=== PATIENT | female | born 1975 | race Two or more races ===

== ENCOUNTER 2023-05-24 06:33 | Day surgery (SDC) | payer OTHER ==
[~2023-05-24 06:33] MED LIST: Albuterol 0.083% 2.5 MG/3 ML Neb Soln NEB PRN; HYDROmorphone 1 MG/ML Syringe IVPUSH PRN; Lactated Ringers 1,000 ML IV SCH; Metoclopramide 10 MG/2 ML SDV IVPUSH PRN; Morphine 2 MG/ML SYRINGE IVPUSH PRN; Naloxone 0.4 MG/ML SDV IVPUSH PRN; Ondansetron 4 MG/2 ML SDV IVPUSH PRN; Sodium Chloride 0.9% 10 ML Syringe FLUSH PRN; Sodium Chloride 0.9% 2.5 ML Syringe FLUSH PRN; Sodium Chloride 0.9% 20 ML SDV IV PRN; droPERidol 5 MG/2 ML SDV IVPUSH PRN; fentaNYL 50 MCG/ML SDV IVPUSH PRN
[2023-05-24] MEDS ORDERED: Bupivacaine 0.5% 30 ML SDV ONE (07:32)
[2023-05-24] MEDS ORDERED: Lidocaine 1% 20 ML MDV ONE (07:32)
[2023-05-24] MEDS ORDERED: Heparin Sodium 100 Units/ML 3 ML Syringe ONE (07:32)
[2023-05-24] MEDS ORDERED: Iopamidol 200-M 10 ML vial ITHECAL ONE (07:32)
[2023-05-24] MEDS ORDERED: Lidocaine 2% 11 ML Jelly Filled Syringe ONE (07:38)
[2023-05-24] MEDS ORDERED: Dexamethasone 4 MG/ML 5 ML MDV ONE (07:38)
[2023-05-24] MEDS ORDERED: Lidocaine 2% 5 ML SDV ONE (07:38)
[2023-05-24] MEDS ORDERED: Ketorolac 30 MG/ML SDV ONE (07:38)
[2023-05-24] MEDS ORDERED: Ondansetron 4 MG/2 ML SDV ONE (07:38)
[2023-05-24] MEDS ORDERED: Propofol 200 MG/20 ML SDV ONE (07:38)
[2023-05-24] MEDS ORDERED: Morphine 10 MG/ML SDV ONE (07:39)
[2023-05-24] MEDS ORDERED: ceFAZolin 1 GM Vial ONE (08:18)
[2023-05-24] MEDS ORDERED: ceFAZolin 2 GM in Sodium Chloride 0.9% 50 ML IV ONE (16:26)
== END 2023-05-24 10:40 | disposition home or self-care (01) ==
LOC: MW.SDS 06:33
PROVIDERS: ATTEND Surgery
DX: C50.911 Malignant neoplasm of unspecified site of right female breast (principal); D49.89 Neoplasm of unspecified behavior of other specified sites; K21.9 Gastro-esophageal reflux disease without esophagitis; Z79.899 Other long term (current) drug therapy; Z88.8 Allergy status to other drugs, medicaments and biological substances
CPT/HCPCS: 36561; 71045; 76000; 81025; A9270; C1788; J0665; J0690; J1642; J1885; J2270; J2405; J2704; J7120; J1100; J3490; Q9966

== ENCOUNTER 2024-07-20 09:06 | Day surgery (SDC) | payer BC ==
[2024-07-20] MEDS: Lactated Ringers 1,000 ML IV SCH (09:28)
[2024-07-20] MEDS ORDERED: propofoL 500 MG/50 ML 50 ML ONE (09:57)
[2024-07-20] MEDS ORDERED: Lidocaine 2% 5 ML SDV ONE (09:58)
[2024-07-20] MEDS ORDERED: Phenylephrine HCl In 0.9% NaCl 1 MG/10 ML Syringe ONE (10:29)
[2024-07-20] MEDS ORDERED: Lactated Ringers 1,000 ML IV SCH (11:00)
== END 2024-07-20 11:55 | disposition home or self-care (01) ==
LOC: MW.SDS 09:06
PROVIDERS: ATTEND Surgery
DX: Z12.11 Encounter for screening for malignant neoplasm of colon (principal); K21.9 Gastro-esophageal reflux disease without esophagitis; Z79.899 Other long term (current) drug therapy; Z88.1 Allergy status to other antibiotic agents; Z88.8 Allergy status to other drugs, medicaments and biological substances
CPT/HCPCS: 45378; J2003; J2371; J2704; J7120; 00812

== ENCOUNTER 2025-03-26 08:25 | Day surgery (SDC) | payer BC ==
[~2025-03-26 08:25] MED LIST changes: -HYDROmorphone 1 MG/ML Syringe IVPUSH PRN; -Lactated Ringers 1,000 ML IV SCH; -Metoclopramide 10 MG/2 ML SDV IVPUSH PRN; -Morphine 2 MG/ML SYRINGE IVPUSH PRN; -Sodium Chloride 0.9% 20 ML SDV IV PRN; -droPERidol 5 MG/2 ML SDV IVPUSH PRN
[2025-03-26] MEDS: Lactated Ringers 1,000 ML IV SCH (08:56)
[2025-03-26] MEDS ORDERED: Propofol 200 MG/20 ML SDV ONE (09:42)
[2025-03-26] MEDS ORDERED: dexmedeTOMIDine HCl 200 MCG/2 ML SDV ONE (09:46)
[2025-03-26] MEDS ORDERED: fentaNYL 100 MCG/2 ML SDV ONE (09:47)
== END 2025-03-26 11:41 | disposition home or self-care (01) ==
LOC: MW.SDS 08:25
PROVIDERS: ATTEND Surgery
DX: Z45.2 Encounter for adjustment and management of vascular access device (principal); Z85.3 Personal history of malignant neoplasm of breast; Z86.16 Personal history of COVID-19; Z88.8 Allergy status to other drugs, medicaments and biological substances; Z79.899 Other long term (current) drug therapy
CPT/HCPCS: 36590; J0665; J0690; J2003; J2704; J3010; J7120